=== PATIENT | female | born 1945 | race Hispanic/Latino ===

== ENCOUNTER 2021-03-26 12:21 | Emergency (ER) | payer OTHER ==
[~2021-03-26] VITALS: Ht 157.5 cm; Wt 111.1 kg
[2021-03-26 13:53] LABS: BASOPHILS % (AUTO) 0.4 % (0.0-5.0); EOSINOPHILS % (AUTO) 0.3 % (0.0-8.0); HEMATOCRIT 43.5 % (36-48); LYMPHOCYTES % (AUTO) 17.1 % (21.0-51.0); MEAN CORPUSCULAR HEMOGLOBIN 27.2 pg (27.0-33.0); MEAN CORPUSCULAR HGB CONC 31.3 g/dL (32.0-36.0); MONOCYTES % (AUTO) 5.7 % (3.0-13.0); NEUTROPHILS % (AUTO) 76.1 % (40.0-77.0); PLATELET COUNT (AUTO) 268 K/uL (130-400); RED CELL DISTRIBUTION WIDTH 17.6 % (11.0-15.5); WHITE BLOOD COUNT (AUTO) 10.4 K/uL (4.8-10.8)
[2021-03-26 15:03] LABS: ALBUMIN 3.5 g/dL (3.5-5.0); BILIRUBIN,TOTAL 0.8 mg/dL (0.2-1.0); CREATININE 0.9 mg/dL (0.5-1.5); POTASSIUM 4.6 mmol/L (3.5-5.1); TOTAL PROTEIN, SERUM 7.6 g/dL (6.0-8.3)
[2021-03-26 17:26] VITALS: BP 143/89
== END 2021-03-26 18:50 | disposition home or self-care (01) ==
LOC: EDH 12:21
DX: K59.00 Constipation, unspecified (principal)
CPT/HCPCS: 36415; 74018; 80053; 85025

== ENCOUNTER 2021-09-12 19:51 | Inpatient (IN) | payer OTHER ==
[~2021-09-12] VITALS: Ht 160 cm; Wt 111.1 kg
[~2021-09-12 19:51] MED LIST: GABA-529 PO; ROPI0.257 PO
[2021-09-12 20:04] LABS: ABG BASE EXCESS 2.2 mmol/L (-2.0-3.0); ABG OXYGEN SATURATION 99.9 % (95.0-99.0); ABG PCO2 38 mmHg (32-45)
[2021-09-12 20:34] LABS: BASOPHILS % (AUTO) 0.6 % (0.0-5.0); EOSINOPHILS % (AUTO) 0.4 % (0.0-8.0); HEMATOCRIT 38.7 % (36-48); LYMPHOCYTES % (AUTO) 9.6 % (21.0-51.0); MEAN CORPUSCULAR HGB CONC 32.3 g/dL (32.0-36.0); MEAN CORPUSCULAR VOLUME 83.6 fL (79-99); MONOCYTES % (AUTO) 5.4 % (3.0-13.0); NEUTROPHILS % (AUTO) 80.6 % (40.0-77.0); PLATELET COUNT (AUTO) 579 K/uL (130-400); RED BLOOD CELL COUNT(AUTO) 4.63 MIL/uL (4.00-5.50)
[2021-09-12 20:44] LABS: CREATININE 3.3 mg/dL (0.5-1.5)
[2021-09-12 20:50] LABS: APPEARANCE,URINE CLOUDY (CLEAR); BILIRUBIN,URINE NEGATIVE (NEGATIVE); COLOR,URINE YELLOW (YELLOW); GLUCOSE, URINE (UA) 250 mg/dL (NEGATIVE); KETONES,URINE NEGATIVE (NEGATIVE); LEUKOCYTE ESTERASE ,URINE NEGATIVE (NEGATIVE); NITRATE,URINE NEGATIVE (NEGATIVE); OCCULT BLOOD,URINE NEGATIVE (NEGATIVE); PROTEIN,URINE NEGATIVE (NEGATIVE); UROBILINOGEN,URINE 0.2 mg/dL (0.2-1.0)
[2021-09-12 20:53] LABS: ALBUMIN 1.8 g/dL (3.5-5.0); TOTAL PROTEIN, SERUM 7.1 g/dL (6.0-8.3)
[2021-09-12 20:59] LABS: WBC,URINE 0-1 /HPF (0-1)
[2021-09-12 21:00] LABS: BACTERIA,URINE Rare /HPF (None Seen); MUCUS,URINE Rare LPF (None Seen); SQUAMOUS EPITHELIAL CELL,UR Few /HPF (0-2); TRANSITIONAL EPI CELLS,URINE Few /HPF (None Seen); YEAST,URINE BUDDING Many /HPF (None Seen)
[2021-09-12 21:00] LABS: B-TYPE NATRIURETIC PEPTIDE 59 pg/mL (0-100)
[2021-09-12] MEDS ORDERED: ZOSYN 3.375GM +NS 50ML IV ONE (21:00)
[2021-09-12 21:10] LABS: MAGNESIUM 1.8 mg/dL (1.80-2.40)
[2021-09-12] MEDS ORDERED: LABETALOL 20MG SYG IV PRN (22:00)
[2021-09-12] MEDS ORDERED: HYDRALAZINE 20MG/ML VIAL IV PRN (22:00)
[2021-09-12] MEDS ORDERED: DOCUSATE SODIUM 100 MG CAP PO PRN (22:00)
[2021-09-12] MEDS ORDERED: TEMAZEPAM 15 MG CAPSULE PO PRN (22:00)
[2021-09-12] MEDS ORDERED: LACTULOSE 20 GM/30 ML UDCUP PO PRN (22:00)
[2021-09-12] MEDS ORDERED: ACETAMINOPHEN 650 MG SUPPOSITORY RC PRN (22:00)
[2021-09-12] MEDS ORDERED: ONDANSETRON 4MG INJ IVP PRN (22:00)
[2021-09-12] MEDS ORDERED: ACETAMINOPHEN 325 MG TAB PO PRN (22:00)
[2021-09-12] MEDS ORDERED: CLONIDINE HCL 0.1 MG TABLET PO PRN (22:00)
[2021-09-12] MEDS: SOLU-MEDROL 125MG VIAL IVP SCH (22:24)
[2021-09-12] MEDS: IPRATROPIUM/ALBUTEROL SULFATE 3 ML SOLUTION IH SCH (23:15)
[2021-09-13] VITALS (11 sets, daily range): BP systolic 49–138; BP diastolic 38–71
[2021-09-13] MEDS ORDERED: 0.9%NACL 1000ML 1,000 ML IV SCH (00:30)
[2021-09-13] MEDS ORDERED: MIDODRINE HCL 5 MG TABLET PO SCH (00:30)
[2021-09-13] MEDS ORDERED: ACET325T51 PO (01:20)
[2021-09-13] MEDS ORDERED: APIX5TAB PO (01:22)
[2021-09-13] MEDS ORDERED: AMIO200T68 PO (01:22)
[2021-09-13] MEDS ORDERED: SACU1TAB PO (01:23)
[2021-09-13] MEDS ORDERED: GENT30OI2 TP (01:27)
[2021-09-13] MEDS ORDERED: INSU500V SQ (01:29)
[2021-09-13] MEDS ORDERED: EMPA10TA PO (01:30)
[2021-09-13] MEDS ORDERED: INSLAN SQ (01:31)
[2021-09-13] MEDS ORDERED: FURO20TA6 PO (01:32)
[2021-09-13] MEDS ORDERED: METO-409 PO (01:32)
[2021-09-13] MEDS ORDERED: POLY17PO52 PO (01:33)
[2021-09-13] MEDS ORDERED: COLL30OI TP (01:35)
[2021-09-13] MEDS ORDERED: ACET-2079 PO (01:36)
[2021-09-13] MEDS ORDERED: ONDA-104 PO (01:38)
[2021-09-13] MEDS: IPRATROPIUM/ALBUTEROL SULFATE 3 ML SOLUTION IH SCH ×6 (02:40→23:01)
[2021-09-13] MEDS ORDERED: AMIODARONE 150MG VIAL IV ONE (03:02)
[2021-09-13 04:15] LABS: BASOPHILS % (AUTO) 0.5 % (0.0-5.0); EOSINOPHILS % (AUTO) 0.1 % (0.0-8.0); HEMATOCRIT 36.5 % (36-48); LYMPHOCYTES % (AUTO) 4.5 % (21.0-51.0); MEAN CORPUSCULAR HEMOGLOBIN 27.2 pg (27.0-33.0); MEAN CORPUSCULAR HGB CONC 32.6 g/dL (32.0-36.0); MEAN CORPUSCULAR VOLUME 83.5 fL (79-99); MONOCYTES % (AUTO) 1.6 % (3.0-13.0); NEUTROPHILS % (AUTO) 87.9 % (40.0-77.0); PLATELET COUNT (AUTO) 506 K/uL (130-400); RED BLOOD CELL COUNT(AUTO) 4.37 MIL/uL (4.00-5.50); RED CELL DISTRIBUTION WIDTH 16.2 % (11.0-15.5); WHITE BLOOD COUNT (AUTO) 29.4 K/uL (4.8-10.8)
[2021-09-13 04:31] LABS: CREATININE 3.6 mg/dL (0.5-1.5); MAGNESIUM 1.7 mg/dL (1.80-2.40); PHOSPHORUS 7.1 mg/dL (2.5-4.9)
[2021-09-13] MEDS ORDERED: RENAL DOSE IV SCH (05:30)
[2021-09-13] MEDS ORDERED: OSELTAMIVIR PHOSPHATE 75 MG CAP PO SCH (05:30)
[2021-09-13] MEDS ORDERED: KCL 20 MEQ ERTAB PO PRN (06:00)
[2021-09-13] MEDS ORDERED: MAGNESIUM 2GM PREMIX 50ML 50 ML IV PRN (06:00)
[2021-09-13] MEDS ORDERED: POLYETHYLENE GLYCOL 3350 17 GM POWD.PACK PO PRN (06:00)
[2021-09-13] MEDS ORDERED: POTASSIUM CHLORIDE 10MEQ/100ML 100 ML IV PRN (06:00)
[2021-09-13] MEDS ORDERED: POTASSIUM CHLORIDE 10% ELIXIR 20 MEQ/15 ML UDCUP PO PRN (06:00)
[2021-09-13] MEDS ORDERED: LIDOCAINE HCL-MPF 1% 2ML VIAL IV PRN (06:00)
[2021-09-13] MEDS: ZOSYN 3.375GM +NS 50ML IV SCH ×3 (06:26→21:05)
[2021-09-13] MEDS: SOLU-MEDROL 125MG VIAL IVP SCH ×3 (06:26→21:07)
[2021-09-13] MEDS ORDERED: COMPOUND PO MISCELLANEOUS 1 EACH MISC MISC PRN ×2 (07:00→16:30)
[2021-09-13] MEDS ORDERED: METOPROLOL SUCCINATE 50 MG TAB.SR.24H PO SCH (09:00)
[2021-09-13] MEDS ORDERED: GABAPENTIN 100 MG CAPSULE PO SCH (09:00)
[2021-09-13] MEDS ORDERED: APIXABAN 5 MG TABLET PO SCH (09:00)
[2021-09-13] MEDS ORDERED: ENOXAPARIN SODIUM 30 MG/0.3 ML SQ SCH (09:00)
[2021-09-13] MEDS ORDERED: FUROSEMIDE 20 MG TABLET PO SCH (09:00)
[2021-09-13] MEDS: MIDODRINE HCL 5 MG TABLET PO SCH ×3 (09:21→21:05)
[2021-09-13] MEDS: AMIODARONE 200 MG TABLET PO SCH (09:21)
[2021-09-13] MEDS: PANTOPRAZOLE 40 MG/VIAL IVP SCH (09:22)
[2021-09-13] MEDS: INSULIN GLARGINE 100 UNITS/ML 10 ML VIAL SQ SCH (09:24)
[2021-09-13] MEDS ORDERED: SODIUM CHLORIDE 7% INHALATION 4 ML VIAL.NEB IH ONE ×3 (10:51→19:04)
[2021-09-13] MEDS: OSELTAMIVIR SUSP 15 MG/ML (6 CAPS/29ML) PO SCH ×4 (11:31→17:00)
[2021-09-13] MEDS: HONEY 1 APPL/ML TUBE TP SCH (11:32)
[2021-09-13] MEDS: GENTAMICIN 15 GM CREAM TP SCH (11:32)
[2021-09-13] MEDS ORDERED: PHARMACY COMMUNICATION MISC SCH (16:00)
[2021-09-13] MEDS ORDERED: CEFEPIME HCL 2 GM VIAL IVP SCH (16:00)
[2021-09-13] MEDS: FUROSEMIDE 40MG VIAL IV SCH (16:21)
[2021-09-13] MEDS ORDERED: HEPARIN 25,000 UNITS/250ML D5W 250 ML IV SCH (21:00)
[2021-09-13] MEDS: DOXYCYCLINE HYCLATE 100 MG TABLET PO SCH (21:05)
[2021-09-13] MEDS: ROPINIROLE HCL 0.25 MG TABLET PO SCH (21:05)
[2021-09-13] MEDS: HEPARIN 25,000 UNITS/250ML D5W 250 ML IV PRN (22:14)
[2021-09-13 23:55] LABS: BASOPHILS % (AUTO) 0.2 % (0.0-5.0); EOSINOPHILS % (AUTO) 0.1 % (0.0-8.0); HEMATOCRIT 38.3 % (36-48); LYMPHOCYTES % (AUTO) 4.1 % (21.0-51.0); MEAN CORPUSCULAR HEMOGLOBIN 27.5 pg (27.0-33.0); MEAN CORPUSCULAR HGB CONC 32.6 g/dL (32.0-36.0); MEAN CORPUSCULAR VOLUME 84.2 fL (79-99); MONOCYTES % (AUTO) 2.3 % (3.0-13.0); NEUTROPHILS % (AUTO) 83.1 % (40.0-77.0); PLATELET COUNT (AUTO) 565 K/uL (130-400); RED BLOOD CELL COUNT(AUTO) 4.55 MIL/uL (4.00-5.50); RED CELL DISTRIBUTION WIDTH 16.5 % (11.0-15.5)
[2021-09-14] VITALS (86 sets, daily range): BP systolic 57–189; BP diastolic 21–145
[2021-09-14] MEDS ORDERED: RENAL DOSE IV SCH
[2021-09-14 00:01] LABS: WHITE BLOOD COUNT (AUTO) 45.8 K/uL (4.8-10.8)
[2021-09-14] MEDS ORDERED: 0.9%NACL 1000ML 1,000 ML IV SCH (00:01)
[2021-09-14 00:04] LABS: CARBON DIOXIDE 25 mmol/L (21-32); CHLORIDE 93 mmol/L (101-111); CREATININE 4.5 mg/dL (0.5-1.5); GLOMERULAR FILTR. RATE CALC 10 mL/min (>60); GLUCOSE,RANDOM 284 mg/dL (70-105); POTASSIUM 4.9 mmol/L (3.5-5.1); SODIUM SERUM 131 mmol/L (136-145); UREA NITROGEN, BLOOD 71 mg/dL (7-18)
[2021-09-14 00:13] LABS: ALANINE AMINOTRANSFERASE 16 U/L (12-78); ALBUMIN 1.4 g/dL (3.5-5.0); ASPARTATE AMINOTRANSFERASE 19 U/L (10-37)
[2021-09-14 00:14] LABS: LIPASE < 50 U/L (114-286)
[2021-09-14] MEDS ORDERED: VANCOMYCIN KIT 1 GM/250 ML IV.KIT IV ONE (00:15)
[2021-09-14 00:23] LABS: INR 1.3 (0.85-1.15)
[2021-09-14 00:24] LABS: PARTIAL THROMBOPLASTIN TIME 66.3 SEC (26.3-35.5)
[2021-09-14 00:25] LABS: BAND NEUTROPHILS % (MANUAL) 13 % (0-2); LYMPHOCYTES % (MANUAL) 1 % (22-44); MAN.DIFF COMMENT-IMPRESSION MANUAL DIFFERENTIAL; MONOCYTES % (MANUAL) 6 % (2-9); PLATELET MORPHOLOGY COMMENT INCREASED; SEGMENTED NEUTROPHILS % 80 % (40-70)
[2021-09-14 00:38] LABS: BASOPHILS % (AUTO) 0.2 % (0.0-5.0); EOSINOPHILS % (AUTO) 0.1 % (0.0-8.0); HEMATOCRIT 39.1 % (36-48); LYMPHOCYTES % (AUTO) 3.6 % (21.0-51.0); MEAN CORPUSCULAR HGB CONC 32.2 g/dL (32.0-36.0); MEAN CORPUSCULAR VOLUME 83.7 fL (79-99); MONOCYTES % (AUTO) 2.9 % (3.0-13.0); PLATELET COUNT (AUTO) 572 K/uL (130-400); RED BLOOD CELL COUNT(AUTO) 4.67 MIL/uL (4.00-5.50); RED CELL DISTRIBUTION WIDTH 16.5 % (11.0-15.5)
[2021-09-14 00:41] LABS: WHITE BLOOD COUNT (AUTO) 46.9 K/uL (4.8-10.8)
[2021-09-14 01:05] LABS: ALBUMIN 1.4 g/dL (3.5-5.0); CREATININE 4.4 mg/dL (0.5-1.5); MAGNESIUM 2.3 mg/dL (1.80-2.40); PHOSPHORUS 7.5 mg/dL (2.5-4.9); POTASSIUM 4.7 mmol/L (3.5-5.1); THYROID STIMULATING HORMONE 2.68 uIU/mL (0.36-3.74)
[2021-09-14] MEDS: NOREPINEPHRIN 4MG/NS 250ML 250 ML IV SCH ×3 (01:09→11:24)
[2021-09-14 01:28] LABS: ABG HCO3 19.8 mmol/L (21.0-28.0); ABG OXYGEN SATURATION 99.6 % (95.0-99.0); ABG PCO2 40 mmHg (32-45)
[2021-09-14] MEDS: IPRATROPIUM/ALBUTEROL SULFATE 3 ML SOLUTION IH SCH ×6 (02:45→22:49)
[2021-09-14] MEDS: FUROSEMIDE 40MG VIAL IV SCH (02:56)
[2021-09-14] MEDS: INSULIN HUMULIN R 100 UNIT/ML 3ML SQ SCH ×4 (03:52→22:00)
[2021-09-14] MEDS: ZOSYN 3.375GM +NS 50ML IV SCH ×2 (03:54→12:48)
[2021-09-14 04:21] LABS: ABG BASE EXCESS -4.9 mmol/L (-2.0-3.0); ABG HCO3 21.5 mmol/L (21.0-28.0); ABG OXYGEN SATURATION 91.8 % (95.0-99.0); ABG PCO2 45 mmHg (32-45)
[2021-09-14] MEDS: SOLU-MEDROL 125MG VIAL IVP SCH ×3 (06:03→16:40)
[2021-09-14] MEDS ORDERED: VANCOMYCIN PROTOCOL PER PHARMACY IV SCH (06:30)
[2021-09-14 08:14] LABS: INR 1.25 (0.85-1.15); PROTHROMBIN TIME 13.5 SEC (9.6-11.6)
[2021-09-14] MEDS: MIDODRINE HCL 5 MG TABLET PO SCH ×2 (08:24→14:00)
[2021-09-14] MEDS: PANTOPRAZOLE 40 MG/VIAL IVP SCH (08:24)
[2021-09-14] MEDS: AMIODARONE 200 MG TABLET PO SCH (08:24)
[2021-09-14] MEDS: DOXYCYCLINE HYCLATE 100 MG TABLET PO SCH ×2 (08:24→21:00)
[2021-09-14] MEDS: INSULIN GLARGINE 100 UNITS/ML 10 ML VIAL SQ SCH (08:27)
[2021-09-14] MEDS: GENTAMICIN 15 GM CREAM TP SCH (08:53)
[2021-09-14] MEDS: HONEY 1 APPL/ML TUBE TP SCH (08:54)
[2021-09-14] MEDS ORDERED: OSELTAMIVIR PHOSPHATE 75 MG CAP PO SCH (09:00)
[2021-09-14] MEDS ORDERED: Vitamin B Complex/Vit C/Folic Acid PO SCH (09:00)
[2021-09-14] MEDS: OSELTAMIVIR SUSP 15 MG/ML (6 CAPS/29ML) PO SCH ×4 (09:43→16:39)
[2021-09-14] MEDS ORDERED: PHARMACY COMMUNICATION MISC SCH (11:00)
[2021-09-14] MEDS ORDERED: NOREPINEPHRINE BITARTRATE 32 MG in 0.9% NACL 250ML 250 ML IV SCH (11:30)
[2021-09-14] MEDS ORDERED: 0.9%NACL 100ML IV ONE (11:30)
[2021-09-14] MEDS: VASOPRESSIN 40 UNITS in 0.9%NACL 50ML 40 ML IV PRN (11:44)
[2021-09-14] MEDS: PHENYLEPHRINE HCL 100 MG in 0.9% NACL 250ML 240 ML IV PRN ×4 (11:50→23:00)
[2021-09-14] MEDS: HEPARIN 25,000 UNITS/250ML D5W 250 ML IV PRN (12:43)
[2021-09-14] MEDS ORDERED: 0.9% NACL 250ML 200 ML IV SCH (14:30)
[2021-09-14] MEDS ORDERED: CEFEPIME HCL 1 GM VIAL IVP SCH (14:30)
[2021-09-14] MEDS ORDERED: MEROPENEM 1 GM VIAL IVP SCH (15:00)
[2021-09-14] MEDS ORDERED: FLUCONAZOLE 200 MG/NS 100 ML 100 ML IV SCH (15:00)
[2021-09-14] MEDS ORDERED: LINEZOLID 600 MG/ISO-OSM 300 ML IV SCH (16:00)
[2021-09-14] MEDS: ROPINIROLE HCL 0.25 MG TABLET PO SCH (22:00)
[2021-09-15 00:54] VITALS: BP 128/19
[2021-09-15] MEDS: SOLU-MEDROL 125MG VIAL IVP SCH (01:10)
[2021-09-15 01:38] VITALS: BP 83/14
[2021-09-15 02:00] VITALS: BP 83/14
[2021-09-15] MEDS: VASOPRESSIN 40 UNITS in 0.9%NACL 50ML 40 ML IV PRN (02:00)
[2021-09-15] MEDS: IPRATROPIUM/ALBUTEROL SULFATE 3 ML SOLUTION IH SCH (02:08)
[2021-09-20] MEDS ORDERED: VANCOMYCIN 1.25 GM/250 ML BAG 250 ML IV SCH (09:00)
== END 2021-09-15 03:03 | DRG 871 ==
LOC: EDH 19:51 → 4CH 21:30 → EDHIP 21:30 → OBSVTOIN 21:30 → UNDOADMOB 21:30 → 4CH 23:15 → EDHIP 23:15 → INTOOBSV 09-13 14:52 → 4CH 09-13 14:52 → UNDOADMOB 09-13 14:52 → OBSVTOIN 09-13 14:52 → 2CH 09-13 23:58 → 4CH 09-13 23:58
PROVIDERS: ADMIT Internal Medicine Critical Care Medicine; ATTEND Internal Medicine Critical Care Medicine
PROC: 5A09357 Assistance with Respiratory Ventilation, Less than 24 Consecutive Hours, Continuous Positive Airway Pressure (ICD-10-PCS; principal; 2021-09-12)
DX: A41.9 Sepsis, unspecified organism (principal); I50.23 Acute on chronic systolic (congestive) heart failure; J10.00 Influenza due to other identified influenza virus with unspecified type of pneumonia; J96.01 Acute respiratory failure with hypoxia; R65.21 Severe sepsis with septic shock; I82.431 Acute embolism and thrombosis of right popliteal vein; N17.9 Acute kidney failure, unspecified; E87.1 Hypo-osmolality and hyponatremia; Z68.41 Body mass index [BMI] 40.0-44.9, adult; N39.0 Urinary tract infection, site not specified; G93.40 Encephalopathy, unspecified; I42.9 Cardiomyopathy, unspecified; I13.0 Hypertensive heart and chronic kidney disease with heart failure and stage 1 through stage 4 chronic kidney disease, or unspecified chronic kidney disease; L03.115 Cellulitis of right lower limb; L03.116 Cellulitis of left lower limb; L97.929 Non-pressure chronic ulcer of unspecified part of left lower leg with unspecified severity; L97.919 Non-pressure chronic ulcer of unspecified part of right lower leg with unspecified severity; Z20.822 Contact with and (suspected) exposure to COVID-19; B96.1 Klebsiella pneumoniae [K. pneumoniae] as the cause of diseases classified elsewhere; N18.9 Chronic kidney disease, unspecified; I48.91 Unspecified atrial fibrillation; E11.22 Type 2 diabetes mellitus with diabetic chronic kidney disease; E11.51 Type 2 diabetes mellitus with diabetic peripheral angiopathy without gangrene; E83.39 Other disorders of phosphorus metabolism; G47.33 Obstructive sleep apnea (adult) (pediatric); E03.9 Hypothyroidism, unspecified; E66.01 Morbid (severe) obesity due to excess calories; E78.00 Pure hypercholesterolemia, unspecified; Z66 Do not resuscitate; Z82.49 Family history of ischemic heart disease and other diseases of the circulatory system; Z83.3 Family history of diabetes mellitus; Z79.4 Long term (current) use of insulin; Z86.73 Personal history of transient ischemic attack (TIA), and cerebral infarction without residual deficits
CPT/HCPCS: 36415; 36600; 71045; 71250; 76770; 78582; 80048; 80053; 81001; 82435; 82550; 82803; 82947; 82948; 83605; 83690; 83735; 83880; 83935; 84100; 84132; 84145; 84295; 84300; 84443; 84484; 85018; 85025; 85378; 85610; 85730; 86308; 87040; 87077; 87088; 87186; 87635; 87804; 93005; 93306; 93970; 94640; 94664; A9540; A9558; C9113; C9803; G0378; J0282; J0692; J1450; J1644; J1815; J1940; J2020; J2185; J2370; J2543; J2930; J3370; J3475; J3490; J7030; J7050